=== PATIENT | male | born 1970 | race Caucasian/White ===

== ENCOUNTER 2017-11-07 19:00 | Observation (INO) | payer BC ==
[~2017-11-07] VITALS: Ht 182.9 cm; Wt 131.0 kg
[~2017-11-07 19:00] MED LIST: ELIQUIS2.5 MG PO
[2017-11-07] MEDS ORDERED: SULFASALAZINE500 MG PO (19:21)
[2017-11-07] MEDS ORDERED: ELIQUIS5 MG PO (19:22)
[2017-11-07] MEDS ORDERED: ACETAMINOPHEN-1 EACH PO (19:22)
--- NOTE | 2017-11-07 23:09 | NUR ---
RECEIVED REPORT FROM YAHIR ANTUNEZ FROM ED. PT ADMITTED TO ROOM 123 FROM ED. CAME TO ED DUE TO NON PRODUCTIVE COUGH AND FEVER, WELL RIGHT SWOLLEN KNEE, PAINFUL. HAS HISTORY OF RHEUMATOID ARTHRITIS, H/O PE'S WELL LEFT LEG VENOUS INSUFFICIENCY, WAS CONCERNED THAT THE RIGHT LEG FELT LIKE HIS LEFT LEG WHEN HE HAD DVT'S. RIGHT KNEE IS CONSIDERABLE LARGER THAN THE LEFT, WARMER, WITH NO REDDNESS. STATES THE KNEE STARTED GETTING PAINFUL MONDAY, AND SINCE THEN HAS JUST GOTTEN TIGHTER, ROM DIFFICULT DUE TO PAIN AND SWELLING. HAS HAD 2 FALLS DUE TO PAINFUL RIGHT LEG. DR MAR PLANS TO CONSULT IN AM PER DR GONSALEZ. PT PLANS TO DISCHARGE IN AM HE [facility] [place] RELATED TO HIS DVT'S, PE'S. PT COUGH IS MOIST, NONPRODUCTIVE. STATES THAT HE HAS "DRAINAGE DOWN BACK OF HIS THROAT", DENIES RECENT COLD, OR ALLERGIES. HAS SOB ON EXERTION, WHILE IN BED NOTE NO SOB .
--- NOTE | 2017-11-08 01:15 | NUR ---
OFFERED PT PAIN MED HE RATED HIS PAIN 7/10 DURING THE ASSESSMENT. PT STATED TO START WITH ONE AND IF HE NEEDED A SECOND ONE, HE WOULD TAKE IT LATER. ASSISTED PT TO THE BATHROOM TO VOID. ABLE TO BEAR WEIGHT, BUT PAINFUL TO WALK. NEEDED HELP PUTTING THE RT LEG INTO BED. SOB DID INCREASE, DID HIS NONPRODUCTIVE COUGH. ONCE TO BED COUGHING CEASED. STATES THAT HE HAS TROUBLE SLEEPING, OFTEN WILL TAKE TYLENOL PM, TO HELP, TAKING MORE THAN THE RECOMMENDED DOSES WITHOUT SUCCESS. EDUCATED PT TO THE SOUNDS HE WOULD HEAR IN HIS ROOM, SIDE EFFECTS OF THE SOLU-MEDROL, WELL THE HYDROCODONE, HOW TO USE THE CALL LIGHT AND EXPECTATIONS FOR THE NIGHT.
--- NOTE | 2017-11-08 02:35 | NUR ---
WOKE PT FOR VS, MOSTLY SLEEPY. DENIES THE NEED FOR PAIN MED, STATED MED HELPED. LUNGS UNCHANGED, DENIES COUGHING. RIGHT KNEE CONTINUES SWOLLEN, WARM, NO REDDNESS, DENIES CALF PAIN.
--- NOTE | 2017-11-08 04:27 | NUR ---
OPENED DOOR TO CHECK PT, HE OPENED EYES, STATED YES, WHEN ASKED IF HE WAS DOING OK. CALL LIGHT LAYING NEXT TO HIM.
--- NOTE | 2017-11-08 06:20 | NUR ---
PT STATES HE SLEPT OFF AND ON, COUGHED IMPROVED OVER ALL. UP TO VOID AT THIS TIME, WALKS VERY SLOW, VERY PAINFUL WHEN BEARING WEIGHT ON THE RT LEG. VOIDED 625, NEEDS HELP GETTING HIS RT LEG INTO BED DUE TO PAIN, AND UNABLE TO BEND KNEE. DENIED NEEDING A PAIN PILL AT FIRST, BUT ENCOURAGED PT TO TAKE ONE HE RATED THE PAIN AT 7/10, STATING "NO, IT WILL GET BETTER IF I JUST LAY HERE". MED WITH HYDROCODONE. PT STATES HE HAS HAD THIS KNEE "DRAINED BEFORE", LEFT KNEE COUPLE TIMES, ELBOWS, AND A THUMB IN THE PAST FOR RA. STATES THIS TIME THE KNEE IS "WORSE" THAN THE FIRST TIME HE HAD TO HAVE IT DRAINED, WAS CONCERNED ABOUT THE FEVER PRIOR TO ED VIST, AND HIS COUGH, BUT AFEBRILE ONCE HE WAS ADMITTED. RT KNEE UNCHANGED FROM ADMISSION WITH SWELLING IN REGION OF KNEE, NO SWELLING IN CALF OR ANKLE UPON ADMISSION AND CURRENT, CONTINUES TO DENY CALF PAIN. SL FLUSHES WITH EASE, EDUCATED ON HOW TO USE THE PHONE AND ORDER BREAKFAST.
--- NOTE | 2017-11-08 07:25 | EKG ---
[facility] [address] [facility] [place], [place] [address] Signed Normal sinus rhythm Normal ECG No previous ECGs available Confirmed by BROWN GONSALEZ MD ([id number]) on 11/08/2017 7:25:23 AM Electronically Signed By: BROWN GONSALEZ MD 11/08/17 0725 PATIENT NAME: FCO CASTAÑEDA Electrocardiogram DATE OF : 72 PHYSICIAN: BROWN GONSALEZ MD REPORT #: [id number] REPORT IS CONFIDENTIAL AND NOT TO BE RELEASED WITHOUT AUTHORIZATION
--- NOTE | 2017-11-08 08:00 | NUR ---
BEDSIDE REPORT RECEIVED FROM GALINA. WHITE BOARD UPDATED. PATIENT SITTING UP AWAKE IN BED. FAMILY MEMBER AT BEDSIDE. DR MAR ON MED SURG FLOOR. WILL AWAIT PLAN FROM .
--- NOTE | 2017-11-08 08:06 | NUR ---
PATIENT SITTING UP IN BED. FAMILY MEMBER IN ROOM. CALL LIGHT WITHIN REACH. NO OTHER NEEDS AT THIS TIME.
== END 2017-11-08 09:00 | disposition home or self-care (01) ==
LOC: ED 19:00 → MS 19:02
PROVIDERS: ADMIT Internal Medicine
PROC: 3E0U33Z Introduction of Anti-inflammatory into Joints, Percutaneous Approach (ICD-10-PCS; principal; 2017-11-08)
DX: M25.561 Pain in right knee (principal); M25.461 Effusion, right knee; M06.9 Rheumatoid arthritis, unspecified; R05 Cough; R50.9 Fever, unspecified; E66.9 Obesity, unspecified; Z68.39 Body mass index [BMI] 39.0-39.9, adult; Z86.718 Personal history of other venous thrombosis and embolism; Z86.711 Personal history of pulmonary embolism; Z79.02 Long term (current) use of antithrombotics/antiplatelets; Z79.899 Other long term (current) drug therapy; Z88.8 Allergy status to other drugs, medicaments and biological substances
CPT/HCPCS: 71045; 80053; 83605; 85025; 85610; 85730; 87040; 93005; 93010; 93971; 96374; 99285; G0378; J2920; J3301

== ENCOUNTER 2019-09-11 09:32 | Emergency (ER) | payer BC ==
[~2019-09-11] VITALS: Ht 182.9 cm; Wt 125.2 kg
[~2019-09-11 09:32] MED LIST changes: +ACETAMINOPHEN-1 EACH PO; +ELIQUIS5 MG PO; +SULFASALAZINE500 MG PO
[2019-09-11] MEDS ORDERED: WARFARIN SODIUM5 MG PO (09:41)
[2019-09-11] MEDS ORDERED: HUMIRA PEN40 MG/0.4 SUB-Q (09:50)
--- NOTE | 2019-09-11 17:12 | EKG ---
[facility] [address] [facility] [place], [place] [address] Signed Normal sinus rhythm Normal ECG When compared with ECG of 07-NOV-2017 19:26, No significant change was found Confirmed by CAROLIN PAZ MD ([id number]) on 09/11/2019 5:12:37 PM Electronically Signed By: CAROLIN PAZ MD 09/11/19 1712 PATIENT NAME: MADDYFCO JOVANY Electrocardiogram DATE OF : 72 PHYSICIAN: CAROLIN PAZ MD REPORT #: [id number] REPORT IS CONFIDENTIAL AND NOT TO BE RELEASED WITHOUT AUTHORIZATION
== END 2019-09-11 11:05 | disposition home or self-care (01) ==
LOC: ED 09:32
DX: R06.00 Dyspnea, unspecified (principal); Z88.8 Allergy status to other drugs, medicaments and biological substances; Z88.1 Allergy status to other antibiotic agents; Z79.899 Other long term (current) drug therapy; Z79.01 Long term (current) use of anticoagulants
CPT/HCPCS: 71260; 80053; 83735; 83880; 84484; 85025; 85610; 93005; 93010; 99285-25; Q9967

== ENCOUNTER 2020-11-24 21:25 | Emergency (ER) | payer BC ==
[~2020-11-24] VITALS: Ht 182.9 cm; Wt 128.0 kg
[~2020-11-24 21:25] MED LIST changes: +HUMIRA PEN40 MG/0.4 SUB-Q; +WARFARIN SODIUM5 MG PO
[2020-11-24] MEDS ORDERED: TRAMADOL HCL50 MG PO (21:44)
[2020-11-24] MEDS ORDERED: FAMCICLOVIR500 MG PO (21:44)
[2020-11-24] MEDS ORDERED: OMEPRAZOLE40 MG PO (21:44)
[2020-11-24] MEDS ORDERED: RINVOQ ER15 MG PO (21:45)
[2020-11-24] MEDS ORDERED: MYORISAN30 MG PO (21:45)
[2020-11-25] MEDS ORDERED: PERCOCET 5-3251 EACH PO (00:07)
[2020-11-25] MEDS ORDERED: ELIQUIS5 MG PO (00:07)
--- NOTE | 2020-11-26 12:37 | EKG ---
[facility] [address] [facility] [place], [place] [address] Signed Normal sinus rhythm Normal ECG When compared with ECG of 11-SEP-2019 09:44, No significant change was found Confirmed by JULIÁN RAMOS DO ([id number]) on 11/26/2020 12:36:48 PM Electronically Signed By: JULIÁN RAMOS DO 11/26/20 1237 PATIENT NAME: MADDYFCO JOVANY Electrocardiogram DATE OF : 72 PHYSICIAN: JULIÁN RAMOS DO REPORT #: [id number] REPORT IS CONFIDENTIAL AND NOT TO BE RELEASED WITHOUT AUTHORIZATION
== END 2020-11-25 00:29 | disposition home or self-care (01) ==
LOC: ED 21:25
DX: B02.9 Zoster without complications (principal); I26.99 Other pulmonary embolism without acute cor pulmonale; Z88.1 Allergy status to other antibiotic agents
CPT/HCPCS: 71260; 84484; 85610; 85730; 93005; 93010; 99284-25; J1170; J2405; Q9967

== ENCOUNTER 2021-03-26 20:19 | Emergency (ER) | payer BC ==
[~2021-03-26] VITALS: Ht 182.9 cm; Wt 127.9 kg
[~2021-03-26 20:19] MED LIST changes: +FAMCICLOVIR500 MG PO; +MYORISAN30 MG PO; +OMEPRAZOLE40 MG PO; +PERCOCET 5-3251 EACH PO; +RINVOQ ER15 MG PO; +TRAMADOL HCL50 MG PO
--- OUTSIDE RECORDS SUMMARY | 2021-03-26 20:26 | XMS ---
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 Rita has no Care Guidelines for this patient. [place] VISIT COUNT (12 MO.) 2 [facility] TOTAL 2 NOTE: Visits indicate total known visits. ED/C VISIT TRACKING (12 MO.) 03/26/2021 20:21 [facility] TYPE: Emergency COMPLAINT: - DIZZINESS, COLD SYMPTOMS 11/24/2020 21:25 [facility] TYPE: Emergency COMPLAINT: - POSSIBLE BLOOD CLOT DIAGNOSES: - Allergy status to other antibiotic agents - Zoster without complications - Other pulmonary embolism without acute cor pulmonale INPATIENT VISIT TRACKING (12 MO.) No inpatient visits to display in this time frame [email or web address]
[2021-03-26] MEDS ORDERED: VITAMIN D21250 MCG PO (20:57)
--- NOTE | 2021-03-27 22:04 | EKG ---
[facility] [address] [facility] [place], [place] [address] Signed Normal sinus rhythm Possible Inferior infarct , age undetermined Abnormal ECG When compared with ECG of 24-NOV-2020 21:51, No significant change was found Confirmed by JULIÁN RAMOS DO ([id number]) on 03/27/2021 10:03:50 PM Electronically Signed By: JULIÁN RAMOS DO 03/27/21 220 PATIENT NAME: FCO CASTAÑEDA Electrocardiogram DATE OF : 72 PHYSICIAN: JULIÁN RAMOS DO REPORT #: [id number] REPORT IS CONFIDENTIAL AND NOT TO BE RELEASED WITHOUT AUTHORIZATION
== END 2021-03-27 01:42 | disposition home or self-care (01) ==
LOC: ED 20:19
DX: U07.1 COVID-19 (principal); M06.9 Rheumatoid arthritis, unspecified; Z86.711 Personal history of pulmonary embolism; Z86.718 Personal history of other venous thrombosis and embolism; Z88.1 Allergy status to other antibiotic agents; Z79.01 Long term (current) use of anticoagulants; Z79.899 Other long term (current) drug therapy
CPT/HCPCS: 80053; 81001; 83735; 85025; 93005; 93010; 96374; 99283-25; C9803; J2405; J7040; M0243; Q0244; U0003

== ENCOUNTER 2021-03-30 05:16 | Emergency (ER) | payer BC ==
[~2021-03-30] VITALS: Ht 182.9 cm; Wt 127.9 kg
[~2021-03-30 05:16] MED LIST changes: +VITAMIN D21250 MCG PO
--- OUTSIDE RECORDS SUMMARY | 2021-03-30 05:20 | XMS ---
PreManage Notification: FCO CASTAÑEDA Security Lpn Events No recent Security Events currently on file CRITERIA MET - [facility] - 2 Visits in 30 Days CARE PROVIDERS RAQUEL IBARRA [facility] 03/29/2021-Current PHONE: [phone] Rita has no Care Guidelines for this patient. [place] VISIT COUNT (12 MO.) [address] [place] [address] TOTAL 3 NOTE: Visits indicate total known visits. ED/UCC VISIT TRACKING (12 MO.) 03/30/2021 05:17 [facility] TYPE: Emergency COMPLAINT: - SHORTNESS OF BREATH, DIZZINESS 03/26/2021 20:21 [facility] TYPE: Emergency COMPLAINT: - DIZZINESS, COLD SYMPTOMS DIAGNOSES: - Fever, unspecified - detention (current) use of anticoagulants - Personal history of pulmonary embolism - Personal history of other venous thrombosis and embolism - Allergy status to other antibiotic agents - Rheumatoid arthritis, unspecified - COVID-19 - Other termite control representative (current) drug therapy 11/24/2020 21:25 [facility] [place] TYPE: Emergency COMPLAINT: - POSSIBLE BLOOD CLOT DIAGNOSES: - Allergy status to other antibiotic agents - Zoster without complications - Other pulmonary embolism without acute cor pulmonale INPATIENT VISIT TRACKING (12 MO.) No inpatient visits to display in this time frame [id number]
[2021-03-30] MEDS ORDERED: PROMETHAZINE HC25 M1 PO (06:32)
--- NOTE | 2021-04-01 18:41 | EKG ---
[facility] [address] [place] [address] Signed Normal sinus rhythm Normal ECG When compared with ECG of 26-MAR-2021 21:10, Borderline criteria for Inferior infarct are no longer present Confirmed by BROWN GONSALEZ MD ([id number]) on 04/01/2021 6:41:12 PM Electronically Signed By: BROWN GONSALEZ MD 04/01/211840 PATIENT NAME: FCO CASTAÑEDA Electrocardiogram DATE OF : 72 PHYSICIAN: BROWN GONSALEZ MD REPORT #: [id number] REPORT IS CONFIDENTIAL AND NOT TO BE RELEASED WITHOUT AUTHORIZATION
== END 2021-03-30 06:46 | disposition home or self-care (01) ==
LOC: ED 05:16
DX: U07.1 COVID-19 (principal); M06.9 Rheumatoid arthritis, unspecified; R91.8 Other nonspecific abnormal finding of lung field; Z86.718 Personal history of other venous thrombosis and embolism; Z86.711 Personal history of pulmonary embolism; Z88.1 Allergy status to other antibiotic agents; Z79.01 Long term (current) use of anticoagulants; Z79.899 Other long term (current) drug therapy
CPT/HCPCS: 71045; 80053; 83735; 84484; 85025; 85379; 93005; 93010; 96374; 99285-25; J2405